=== PATIENT | male | born 1965 | race Caucasian/White ===

== ENCOUNTER 2017-08-28 21:00 | Emergency (ER) | payer SELFPAY ==
[~2017-08-28] VITALS: Ht 177.8 cm; Wt 72.7 kg
[2017-08-28 21:01] VITALS: BP 138/75; TEMP 98
[2017-08-28 22:45] VITALS: PULSE 93
== END 2017-08-28 22:45 | disposition home or self-care (01) ==
LOC: COL.ER 21:00
DX: S61.210A Laceration without foreign body of right index finger without damage to nail, initial encounter (principal); W26.0XXA Contact with knife, initial encounter; Y93.G1 Activity, food preparation and clean up; Y92.009 Unspecified place in unspecified non-institutional (private) residence as the place of occurrence of the external cause